=== PATIENT | male | born 1950 | race Caucasian/White ===

== ENCOUNTER 2016-09-21 13:50 | Outpatient (CLI) | payer OTHER | END 2016-09-21 13:51 | disposition short-term general hospital (02) | DX: R07.9 Chest pain, unspecified (principal) | CPT/HCPCS: A0170; A0425; A0427 ==

== ENCOUNTER 2016-12-18 09:29 | Day surgery (SDC) | payer OTHER ==
[2016-12-18] MEDS ORDERED: fentaNYL 100 MCG/2 ML VIAL IVP ONE (09:40)
[2016-12-18] MEDS ORDERED: ONDANSETRON 4 MG/2 ML VIAL IVP ONE (09:40)
[2016-12-18] MEDS ORDERED: MIDAZOLAM 2 MG/2 ML VIAL IVP ONE (09:40)
[2016-12-18] MEDS ORDERED: LIDOCAINE-MPF 2% 5 ML VIAL IM ONE (09:40)
[2016-12-18] MEDS ORDERED: DEXAMETHASONE 4 MG/ML VIAL IVP ONE (09:40)
[2016-12-18] MEDS ORDERED: PROPOFOL 200 MG/20 ML VIAL IVP ONE (09:40)
[2016-12-18] MEDS ORDERED: LACTATED RINGERS 1,000 ML IV ONE ×2 (09:48→11:12)
[2016-12-18] MEDS ORDERED: ceFAZolin 2 GM/50 ML 50 ML IV STA (10:01)
[2016-12-18] MEDS ORDERED: LIDOCAINE 1% 50 ML MDV SUBQ ONE ×2 (10:41)
[2016-12-18] MEDS ORDERED: BUPIVACAINE 0.25%-EPI 1:200000 PF 30 ML VIAL SUBQ ONE ×2 (10:41)
[2016-12-18] MEDS ORDERED: KETOROLAC 15 MG/ML VIAL ONE (11:35)
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
[2016-12-18 12:45] VITALS: BP 132/84
== END 2016-12-18 09:30 | disposition home or self-care (01) ==
LOC: SDS 09:29
PROVIDERS: ATTEND Orthopaedic Surgery
PROC: 0MQ80ZZ Repair Left Hand Bursa and Ligament, Open Approach (ICD-10-PCS; principal; 2016-12-18 11:15)
DX: S63.642A Sprain of metacarpophalangeal joint of left thumb, initial encounter (principal); V89.2XXA Person injured in unspecified motor-vehicle accident, traffic, initial encounter; E03.9 Hypothyroidism, unspecified; Z88.0 Allergy status to penicillin; Z87.891 Personal history of nicotine dependence
CPT/HCPCS: 26540; J0690; J7120

== ENCOUNTER 2017-03-25 08:00 | Outpatient (CLI) | payer OTHER ==
[2017-03-25 13:05] LABS: BASOPHILS # (AUTO) 0.1 10^3/uL (0.0-0.1); BASOPHILS % (AUTO) 1.3 %; EOSINOPHILS # (AUTO) 0.6 10^3/uL (0.0-0.7); EOSINOPHILS % (AUTO) 7.7 %; HCT - HEMATOCRIT 47.3 % (42.0-52.0); HGB - HEMOGLOBIN 16.1 g/dL (14.0-18.0); LYMPHOCYTES # (AUTO) 2.9 10^3/uL (1.5-3.5); LYMPHOCYTES % (AUTO) 37.6 %; MEAN CORPUSCULAR HGB CONC 34.1 g/dL (32.0-36.0); MEAN CORPUSCULAR VOLUME 87.9 fL (80.0-94.0); MEAN PLATELET VOLUME 9.1 fL (7.4-11.4); MONOCYTES # (AUTO) 0.6 10^3/uL (0.0-1.0); NEUTROPHILS # (AUTO) 3.5 10^3/uL (1.5-6.6); NEUTROPHILS % (AUTO) 45.4 %; NUCLEATED RED BLOOD CELLS AUTO 0.1 /100WBC; RED BLOOD COUNT 5.38 10^6/uL (4.70-6.10); RED CELL DISTRIBUTION WIDTH 14.1 % (12.0-15.0); UNCORRECTED WHITE BLOOD COUNT 7.7 x10^3/uL; WHITE BLOOD COUNT 7.7 x10^3/uL (4.8-10.8)
[2017-03-25 13:19] LABS: ALBUMIN/GLOBULIN RATIO 1.4 (1.0-2.2); BILIRUBIN,TOTAL 0.7 mg/dL (0.2-1.0); CALCIUM 9.5 mg/dL (8.5-10.3); CREATININE 0.9 mg/dL (0.6-1.2); TOTAL PROTEIN 7.1 g/dL (6.7-8.2)
== END 2017-03-25 08:01 | disposition home or self-care (01) ==
LOC: LAB.WCP 08:00
PROVIDERS: ATTEND Family Medicine
DX: R51 Headache (principal)
CPT/HCPCS: 36415; 80053; 85025

== ENCOUNTER 2017-03-28 07:19 | Outpatient (CLI) | payer OTHER ==
[2017-03-28] MEDS ORDERED: IOPAMIDOL-300 100 ML VIAL IVP ONE ×3 (07:20→08:13)
[2017-03-28] MEDS ORDERED: IOPAMIDOL-300 100 ML VIAL ONE (07:27)
--- NOTE | 2017-03-28 12:09 | CT Report ---
CT BRAIN WITH AND WITHOUT CONTRAST: 03/28/2017 CLINICAL INDICATION: Headache. TECHNIQUE: Axial CT images of the brain were obtained prior to and following 80 mL Isovue-300 intrav enously. In accordance with CT protocol optimization, one or more of the following dose reduction techniques w ere utilized for this exam: automated exposure control, adjustment of mA and/or KV based on patient size, or use of iterative reconstructive technique. FINDINGS: The ventricles and sulci are normal in size, shape, and configuration. The basilar cister ns are patent. There is no evidence of hemorrhage, mass effect, or midline shift. The visualized or bital contents are unremarkable. There is chronic sinus disease present, with mucosal thickening in the right maxillary sinus, ethmoid air cells, and the left frontal sinus. IMPRESSION: CHRONIC SINUS DISEASE. OTHERWISE, NORMAL CT OF THE BRAIN WITH AND WITHOUT CONTRAST. JOB #: [id number] EXT JOB #:[id number]
== END 2017-03-28 07:20 | disposition home or self-care (01) ==
LOC: DI 07:19
PROVIDERS: ATTEND Family Medicine
DX: J32.9 Chronic sinusitis, unspecified (principal)
CPT/HCPCS: 70470; Q9967

== ENCOUNTER 2017-08-15 10:19 | Emergency (ER) | payer OTHER ==
--- NOTE | 2017-08-15 11:15 | ED Physician Documentation ---
PD HPI ABD PAIN - Stated complaint Stated Complaint: ABD PX/BUMP - Chief complaint Chief Complaint: Abd Pain - History obtained from History obtained from: Patient - History of Present Illness Timing - onset: How many months ago (1) Timing - details: Waxing and waning Quality: Pain Location: Other (Left inguinal) Associated symptoms: No: Fever, Nausea, Vomiting, Diarrhea, Dysuria Recently seen: Clinic - Additional information Additional information: The patient is a 67-year-old male who presents with left inguinal pain, stating "I am reasonably sure I have a hernia." He first noticed left inguinal pain about 1 month ago. He was seen at [facility] 2 or 3 weeks ago and was scheduled for an outpatient ultrasound. He missed the appointment, and when he called the clinic today he was told if he is continuing to have pain he should come to the emergency department and we could order an ultrasound. He denies fever, nausea, vomiting, or dysuria. He denies history of abdominal surgery. Review of Systems Constitutional: denies: Fever Nose: denies: Congestion Throat: denies: Sore throat Cardiac: denies: Chest pain / pressure Respiratory: denies: Dyspnea, Cough GI: denies: Nausea, Vomiting, Diarrhea : denies: Dysuria Skin: denies: Rash Musculoskeletal: denies: Extremity pain Neurologic: denies: Focal weakness, Numbness, Headache PD PAST MEDICAL HISTORY - Past Medical History Cardiovascular: Hypertension Respiratory: Asthma Endocrine/Autoimmune: HyPOthyroidism GI: None : None HEENT: None Psych: None Musculoskeletal: None Derm: Psoriasis - Past Surgical History General: Colonoscopy - Present Medications Home Medications: Ambulatory Orders Medication Instructions Recorded Confirmed Levothyroxine [Synthroid] 88 mcg PO QDAC 12/18/16 12/18/16 - Allergies Allergies/Adverse Reactions: Allergies Allergy/AdvReac Type Severity Reaction Status Date / Time amoxicillin trihydrate * AdvReac Emesis Verified 08/15/17 10:32 [From Augmentin] potassium clavulanate * AdvReac Emesis Verified 08/15/17 10:32 [From Augmentin] PD ED PE NORMAL - Vitals Vital signs reviewed: Yes (hypertensive) - General General: Alert and oriented X 3, Well developed/nourished - HEENT HEENT: Atraumatic, Moist mucous membranes, Pharynx benign - Neck Neck: No adenopathy, No JVD - Cardiac Cardiac: RRR, No murmur - Respiratory Respiratory: No respiratory distress, Clear bilaterally - Abdomen Abdomen: Normal bowel sounds, Soft, Non tender, No organomegaly, Other (Left inguinal lymph nodes are palpable with mild tenderness to palpation, reproducing the pain that patient has been experiencing. No hernia defect is palpated.) - Male Male : Other (No scrotal or testicular swelling or tenderness.) - Derm Derm: No rash - Extremities Extremities: No edema, No calf tenderness / cord - Neuro Neuro: Alert and oriented X 3, Normal speech Results - Vitals Vitals: Oxygen O2 Source Room air - Labs Labs: Laboratory Tests 08/15/17 08/15/17 11:19 11:58 WBC 7.7 RBC 5.03 Hgb 15.2 Hct 43.8 MCV 87.1 MCH 30.1 MCHC 34.6 RDW 14.1 Plt Count 302 MPV 8.2 Neut # 3.8 Lymph # 2.8 Burnett # 0.6 Eos # 0.5 Baso # 0.1 Absolute Nucleated RBC 0.00 Nucleated RBC % 0.1 Urine Color YELLOW Urine Clarity CLEAR Urine pH 7.5 Ur Specific [place] 1.020 Urine Protein NEGATIVE Urine Glucose (UA) NEGATIVE Urine Ketones NEGATIVE Urine Occult Blood NEGATIVE Urine Nitrite NEGATIVE Urine Bilirubin NEGATIVE Urine Urobilinogen 0.2 (NORMAL) Ur Leukocyte Esterase NEGATIVE Ur Microscopic Review NOT INDICATED Urine Culture Comments NOT INDICATED - Rads (name of study) abd. U/S Radiology: Prelim report reviewed, EMP read contemporaneously, See rad report ( Negative left groin; no hernia.) PD MEDICAL DECISION MAKING - ED course Complexity details: reviewed results, re-evaluated patient, considered differential, d/w patient ED course: The patient's left inguinal discomfort is most likely associated with the left inguinal muscle strain. There is no evidence of herniation on ultrasound examination, and there is no evidence of testicular torsion or epididymitis on physical examination. Urinalysis and CBC are negative. I discussed with the patient the results of the ultrasound, outpatient follow-up , as well as potentially worrisome signs or symptoms that should prompt reevaluation emergency department. Departure - Departure Disposition: 01 Home, Self Care Clinical Impression: Strain of left inguinal muscle Qualifiers: Encounter type: initial encounter Qualified Code(s): S39.013A - Strain of muscle, fascia and tendon of pelvis, initial encounter Condition: Stable Instructions: ED Strain Groin Follow-Up: Gatito Jack MD [Primary Care Provider] - Comments: The ultrasound today revealed no evidence of inguinal hernia. Your blood cell count was normal, as was your urinalysis. You can use Tylenol or ibuprofen as needed for pain. Let pain be your guide to activity level. Follow up with your primary physician within 2 weeks. Call to schedule appointment. Return to the emergency department if you develop increasing pain, persistent vomiting, or otherwise worsening symptoms. Discharge Date/Time: 08/15/17 12:43
[2017-08-15 11:22] LABS: BASOPHILS # (AUTO) 0.1 10^3/uL (0.0-0.1); BASOPHILS % (AUTO) 0.8 %; EOSINOPHILS # (AUTO) 0.5 10^3/uL (0.0-0.7); HGB - HEMOGLOBIN 15.2 g/dL (14.0-18.0); LYMPHOCYTES # (AUTO) 2.8 10^3/uL (1.5-3.5); LYMPHOCYTES % (AUTO) 36.3 %; MEAN CORPUSCULAR HEMOGLOBIN 30.1 pg (27.0-31.0); MEAN CORPUSCULAR HGB CONC 34.6 g/dL (32.0-36.0); MEAN CORPUSCULAR VOLUME 87.1 fL (80.0-94.0); MEAN PLATELET VOLUME 8.2 fL (7.4-11.4); MONOCYTES # (AUTO) 0.6 10^3/uL (0.0-1.0); MONOCYTES % (AUTO) 8.2 %; NEUTROPHILS # (AUTO) 3.8 10^3/uL (1.5-6.6); NEUTROPHILS % (AUTO) 48.7 %; PLT - PLATELET COUNT 302 10^3/uL (130-450); RED BLOOD COUNT 5.03 10^6/uL (4.70-6.10); RED CELL DISTRIBUTION WIDTH 14.1 % (12.0-15.0); WHITE BLOOD COUNT 7.7 x10^3/uL (4.8-10.8)
--- NOTE | 2017-08-15 11:57 | Ultrasound Report ---
LEFT GROIN ULTRASOUND: 08/15/2017 HISTORY: Left inguinal pain, assess for hernia. TECHNIQUE: Real-time scanning by the bookkeeping manager with saved static images reviewed. FINDINGS: Imaging is performed of the left groin without and with Valsalva. No inguinal hernia is seen. No cystic or solid mass, abnormal collections, or adenopathy. IMPRESSION: NEGATIVE LEFT GROIN ULTRASOUND. TD: 08/15/2017 11:56
[2017-08-15 12:09] LABS: BILIRUBIN,URINE NEGATIVE (NEGATIVE); GLUCOSE, URINE (UA) NEGATIVE (NEGATIVE); KETONES,URINE (UA) NEGATIVE (NEGATIVE); LEUKOCYTE ESTERASE, URINE NEGATIVE (NEGATIVE); NITRITE,URINE NEGATIVE (NEGATIVE); OCCULT BLOOD,URINE NEGATIVE (NEGATIVE); PH,URINE 7.5 PH (5.0-7.5); PROTEIN,URINE NEGATIVE (NEGATIVE); UROBILINOGEN,URINE 0.2 (NORMAL) E.U./dL (NORMAL)
[2017-08-15 12:11] LABS: CLARITY,URINE CLEAR (CLEAR)
[2017-08-15 12:43] VITALS: BP 148/88
== END 2017-08-15 12:43 | disposition home or self-care (01) ==
LOC: ED 10:19
DX: S39.013A Strain of muscle, fascia and tendon of pelvis, initial encounter (principal); X58.XXXA Exposure to other specified factors, initial encounter
CPT/HCPCS: 36415; 76705; 81001; 81003; 85025; 87086; 99283